=== PATIENT | female | born 1990 | race Two or more races ===

== ENCOUNTER 2016-11-19 23:07 | Inpatient (IN) | payer OTHER ==
[2016-11-19] MEDS ORDERED: EPSOM SALT 454 GM TP PRN (23:57)
[2016-11-19] MEDS ORDERED: TERBUTALINE SULFATE 1 MG/ML VIAL IV PRN (23:57)
[2016-11-19] MEDS ORDERED: LR 1,000 ML IV PRN (23:57)
[2016-11-19] MEDS ORDERED: OXYTOCIN/RINGERS LACTATE 1,000 ML IV PRN (23:57)
[2016-11-19] MEDS ORDERED: OLIVE OIL 118 ML BTL MISC PRN (23:57)
[2016-11-20] MEDS ORDERED: AMMONIA AROMATIC 1 EACH AMP IH ONE (00:21)
[2016-11-20] MEDS ORDERED: OXYTOCIN 10 UNIT/ML VIAL ONE (00:22)
[2016-11-20 00:24] LABS: % IMMATURE GRANULYOCYTES 1.8 % (0.0-1.1); ABSOLUTE IMMATURE GRANULOCYTES 0.16 10^3/uL (0.00-0.10); ADD DIFF? NO; ADD MORPH? NO; ADD SCAN? NO; ATYPICAL LYMPHOCYTE FLAG 10 (0-99); FRAGMENT RBC FLAG 0 (0-99); HEMATOCRIT 38.6 % (38.0-47.0); HEMOGLOBIN 13.2 g/dL (12.6-16.3); LEFT SHIFT FLG 20 (0-99); LIPEMIA HEMOLYSIS FLAG 90 (0-99); MEAN CELL HEMOGLOBIN 30.1 pg (27.9-34.1); MEAN CELL HEMOGLOBIN CONCENTR. 34.2 g/dL (32.4-36.7); MEAN CELL VOLUME 87.9 fL (81.5-99.8); MEAN PLATELET VOLUME 10.1 fL (8.7-11.7); PLATELET CLUMPS FLAG 20 (0-99); PLATELET COUNT 223 10^3/uL (150-400); RED BLOOD CELL COUNT 4.39 10^6/uL (4.18-5.33)
[2016-11-20] MEDS ORDERED: TERBUTALINE SULFATE 1 MG/ML VIAL ONE (00:25)
[2016-11-20] MEDS ORDERED: OLIVE OIL 118 ML BTL ONE (00:25)
[2016-11-20] MEDS ORDERED: MISOPROSTOL 200 MCG TAB ONE (00:25)
[2016-11-20] MEDS ORDERED: LIDOCAINE 1% 300 MG/30 ML SDV ONE (00:25)
[2016-11-20] MEDS ORDERED: HYDROCORTISONE 0.5% CREAM TP PRN (01:26)
[2016-11-20] MEDS ORDERED: ACETAMINOPHEN 325 MG TAB PO PRN (01:26)
[2016-11-20] MEDS ORDERED: DOCUSATE SODIUM 100 MG CAP PO PRN (01:26)
[2016-11-20] MEDS ORDERED: HYDROCODONE/APAP 5/325 TAB PO PRN (01:26)
--- NOTE | 2016-11-20 01:26 | OBPROC ---
- Labor and Delivery Onset of Contractions Date: 11/20/16 Onset of Contractions Time: 08:30 Onset of Contractions Type: Spontaneous Rupture of Membranes Date: 11/20/16 Rupture of Membranes Time: 01:04 Rupture of Membranes Type: Spontaneous Amniotic Fluid Color: Clear Dilation Complete Time: 01:03 Delivery Type: Spontaneous Placenta Delivery Date: 11/20/16 Placenta Delivery Time: 01:08 Episiotomy/Laceration: 1st Degree EBL: 200 - Medications Labor Augmentation/Induction Meds Used: None - Info A Delivery Date: 11/20/16 Delivery Time: 01:04 Sex of Infant: Male Score (1 Min): 8 Score (5 Min): 9
--- NOTE | 2016-11-20 01:50 | GHP ---
[f rep st] PREOP HISTORY AND PHYSICAL DATE OF ADMISSION: 11/19/2016 ADMISSION DIAGNOSES: 1. Intrauterine at 38-6/7 weeks gestation. 2. Labor. 3. History of rapid labors. 4. Grand multipara. INDICATIONS: Patient is a 26-year-old, 7, para 5-0-1-5, who is 38-6/7 weeks gestation. She began having contractions overnight, and she was having contractions every 10-17 minutes; however, she does have a history of rapid labors. She was 1 cm dilated in the office. On arrival to Labor and Delivery, she was 4 cm dilated. The patient is hoping to have an unmedicated . Her is currently on a trip in [place] and is not here for delivery. MEDICAL HISTORY: Anemia while . SURGICAL HISTORY: Dilation and curettage. MEDICATIONS: vitamins and iron. ALLERGIES: No known drug allergies. SOCIAL HISTORY: The patient is a [id number]-qx-[id number] mom. She lives with her and their 5 other children. She denies tobacco, alcohol, or drug use. FAMILY MEDICAL HISTORY: Noncontributory. DATABASE DESIGNER HISTORY: Menarche age 10. Periods every 28 days, lasting 4-5 days. She is a 7, para 5-0-1-5. In 08/2010, she had a spontaneous vaginal delivery of a 6-pound 1-ounce female at 39 weeks gestation. She had an epidural for that. In 08/2011, she had a spontaneous vaginal delivery of an 8- pound 6-ounce male infant at 40 weeks gestation. She had a 2-hour labor. She was induced for that. In 10/2012, she had a spontaneous vaginal delivery of a 7 -pound 7-ounce female infant at 39 weeks gestation, and had a rapid labor. In 02/2014, she had a spontaneous vaginal delivery of a 6-pound 12-ounce female at 39 weeks. She had a 10-hour labor. No complications. In 03/2015, she had a spontaneous vaginal delivery of an 8-pound 3-ounce female at 41 weeks gestation. She had a 1-hour labor and was augmented with artificial rupture of membranes. In 12/2015, she had a missed and had failed medical therapy with Cytotec therapy and had a D and C for a missed . Current has been uncomplicated. Patient denies any history of any abnormal Pap smears or sexually transmitted diseases. REVIEW OF SYSTEMS: Ten-point review of systems is negative. Above-mentioned pertinent positives are noted. She states there is good movement. Denies any loss of fluid. She is having mild spotting. She denies any headaches, changes in vision, nausea or vomiting, fevers or chills. PHYSICAL EXAM: Patient's vital signs are stable. Her general appearance is alert and oriented x3. PSYCH: She has appropriate affect. Her neck is mobile and supple, and there is no thyromegaly noted. Her lungs are clear to auscultation bilaterally. Her heart rate is regular . ABDOMEN: Gravid, nondistended, nontender. EXTREMITIES: No calf tenderness or edema. PELVIC: Cervix is 4 cm dilated, 80% effaced, and -2 station. Infant is in the vertex presentation. heart tracing is category 1. She is having contractions every 4-7 minutes. LABS: Blood type B negative. Antibody screen negative. Rubella immune. GBS negative. HBsAg negative. HIV negative. Her 50 g glucose was 94. She denied any genetic testing. ASSESSMENT AND PLAN: A 26-year-old, 7, para 5-0-1-5, who is 38-6/7 weeks gestation, and presents in early labor. She declines any pain medications and will be managed expectantly. /[id number]/MODL MTDD
[2016-11-20] MEDS: IBUPROFEN 600 MG TAB PO PRN ×2 (09:12→15:12)
[2016-11-20 12:19] VITALS: RESP 16; O2SAT 97
--- NOTE | 2016-11-20 13:23 | OBPROG ---
OBG Progress Note Assessment/Plan: Assessment: 26 y/o PPD #1 s/p doing well Plan: Routine PPC. D/c tomorrow or Friday. 11/20/16 13:22 Subjective: Pt is doing well this am no complaints. She is ambulating, voiding and has min lochia. Baby is breast feeding well and doing well. Objective: 11/20/16 00:04 Patient ABO/Rh A NEGATIVE 11/20/16 03:50 Temp Pulse Resp BP Pulse Ox 36.8 C 69 16 113/65 97 11/20/16 08:00 11/20/16 08:00 11/20/16 08:00 11/20/16 08:00 11/20/16 08:00 Uterine Position/Fundal Height: Umbilicus -2 Uterine Tone: Firm - Physical Exam General Appearance: WD/WN, alert, no apparent distress Neck: non-tender, full range of motion, supple Respiratory: chest non-tender, lungs clear, normal breath sounds Cardiac/Chest: regular rate, rhythm Abdomen: normal bowel sounds Extremities: swelling (no), Chanel's sign (neg) ICD10 Worksheet Patient Problems: Problems Problem Status Onset Spontaneous vaginal delivery Acute
[2016-11-20 19:56] VITALS: PULSE 82
[2016-11-21] MEDS: IBUPROFEN 600 MG TAB PO PRN ×2 (04:29→13:40)
--- NOTE | 2016-11-21 08:38 | SOAPPROG ---
SOAP Progress Note Assessment/Plan: Assessment: well pain well managed vs wnl voiding without difficulty passing gas scant rubra lochia Plan:discharge to home with instructions fu 4 weeks and 6 weeks, pain management , depression, pericare, bleeding pattern, exercise, continuing PNV water intake , pelvic rest, verbalized understanding of all of the above 11/21/16 08:35 Subjective: Doing well denies difficulties. well. Pain well managed. Objective: Vital Signs Temp Pulse Resp BP Pulse Ox 36.1 C 82 16 112/66 97 11/20/16 19:55 11/20/16 19:55 11/20/16 19:55 11/20/16 19:55 11/20/16 19:55 Laboratory Results 11/20/16 00:04 11/20/16 11/21/16 11/22/16 05:59 05:59 05:59 Output Total 200 Balance -200 - Time Spent With Patient Time Spent With Patient: 15 minutes - Pending Discharge Pending Discharge Date: 11/21/16 Pending Discharge Time: 11:00 Physical Exam - Physical Exam General Appearance: WD/WN, alert, no apparent distress Abdomen: other (ff@u) Pelvic Exam: vaginal bleeding (scant rubra lochia) Skin: normal color, warm/dry Extremities: normal range of motion, Chanel's sign (negative bilaterally/ dtrs wnl) Neuro/Psych: no motor/sensory deficits, alert, normal mood/affect ICD10 Worksheet Patient Problems: Problems Problem Status Onset Spontaneous vaginal delivery Acute
[2016-11-21 10:19] VITALS: BP 112/63; TEMP 97.1
== END 2016-11-21 13:45 | disposition home or self-care (01) | DRG 775 ==
LOC: FLD 23:07 → OBSVTOIN 23:57 → FOB 11-20 02:59
PROVIDERS: ADMIT Obstetrics & Gynecology; ATTEND Obstetrics & Gynecology
PROC: 10E0XZZ Delivery of Products of Conception, External Approach (ICD-10-PCS; principal; 2016-11-20)
PROC: 0HQ9XZZ Repair Perineum Skin, External Approach (ICD-10-PCS; principal; 2016-11-20)
DX: O60.14X0 Preterm labor third trimester with preterm delivery third trimester, not applicable or unspecified (principal); Z37.0 Single live birth; Z3A.38 38 weeks gestation of pregnancy; O70.0 First degree perineal laceration during delivery
CPT/HCPCS: J2590; J3105

== ENCOUNTER 2018-05-01 00:05 | Inpatient (IN) | payer OTHER ==
[2018-05-01] MEDS ORDERED: LIDOCAINE 1% 300 MG/30 ML SDV ONE (00:18)
[2018-05-01] MEDS ORDERED: AMMONIA AROMATIC 1 EACH AMP IH ONE (00:18)
[2018-05-01] MEDS ORDERED: OLIVE OIL 118 ML BTL ONE (00:18)
[2018-05-01] MEDS ORDERED: OXYTOCIN 10 UNIT/ML VIAL ONE (00:18)
[2018-05-01] MEDS ORDERED: TERBUTALINE SULFATE 1 MG/ML VIAL ONE (00:18)
[2018-05-01] MEDS ORDERED: MISOPROSTOL 200 MCG TAB ONE (00:19)
[2018-05-01] MEDS ORDERED: MISOPROSTOL 200 MCG TAB PR PRN (00:42)
[2018-05-01] MEDS ORDERED: LR 1,000 ML IV PRN (00:42)
[2018-05-01] MEDS ORDERED: EPSOM SALT 454 GM TP PRN (00:42)
[2018-05-01] MEDS ORDERED: OXYTOCIN/RINGERS LACTATE 1,000 ML IV PRN (00:42)
[2018-05-01] MEDS ORDERED: LIDOCAINE 1% 300 MG/30 ML SDV SC PRN (00:42)
[2018-05-01] MEDS ORDERED: OLIVE OIL 118 ML BTL MISC PRN (00:42)
[2018-05-01] MEDS ORDERED: TERBUTALINE SULFATE 1 MG/ML VIAL IV PRN (00:42)
[2018-05-01] MEDS ORDERED: IBUPROFEN 600 MG TAB PO PRN (00:42)
[2018-05-01 09:05] LABS: PLATELET COUNT 272 10^3/uL (150-400)
--- NOTE | 2018-05-01 09:27 | GHP ---
DATE OF ADMISSION: 05/01/2018 ADMITTING DIAGNOSIS: Intrauterine at 40 weeks gestation for elective augmentation of labor . HISTORY OF PRESENT ILLNESS: The patient is a 27-year-old 8, para 6-0-1-6, with a last menstr ual period of 07/25/2017, and an EDC of 05/01/2018, which was confirmed by a 9 week ultrasound. She has had good care at [facility] since registration at 9 weeks gestation. Her pren atal risk factors include a grand multiparous. This will be her 7th baby. She has a history of prec ipitous deliveries with most of her pregnancies, but otherwise uncomplicated deliveries and pregnanci es. She is Rh negative. She received RhoGAM. Her brother had cleft palate. This baby has had norm al ultrasounds and a short interval. On the evening of the , Beth began having con tractions every 2 minutes, which were mild but concerning because of her history of precipitous deliv elaine. She came in for observation. Her cervix was 2-3 cm. She was kept for observation on the monit or. Baby was reactive category 1. Contractions remained 2-3 minutes, but somewhat irregular and she rested overnight because they were not that intense. In the morning she was recheck. Her cervix co uld be as many as 4 cm during a contraction, but again her contractions are very mild in nature. We discussed a plan for treatment. We weighed the risks and benefits of elective augmentation of labor with artificial rupture of membranes because she is now settled in the hospital, can have IV access a nd have it in a controlled setting to prevent delivery out of hospital or a hemorrhage whe re we can't control and she agrees that is the most prudent and so she is going to stay for augmentat ion of labor. She currently is having very mild contractions. No leakage of fluid. No vaginal blee ding and baby has been moving well. PAST OBSTETRICAL HISTORY: In August of 2010, she had a viable female, weight 6 pounds 1 ounce at 39 w eeks, spontaneous labor. August of 2011, she had a viable male, 8 pounds 6 ounces, 40 weeks, precipit ous delivery, 2 hours of labor. October of 2012, viable female, 7 pounds 7 ounces, 39 weeks, a very fast labor. February 2014, viable female, 6 pounds 12 ounces, 39 weeks, had a longer 10 hour labor. Oc 2014, viable female, 8 pounds 3 ounces, 41 weeks, 1 hour labor. February of 2016, she had a m issed with a D and C. in October of 2016, a viable male, 7 pounds 14 ounces, 38 weeks, again, a very precipitous delivery and this is her current . PAST GYNECOLOGICAL HISTORY: Menarche at age 10, interval every 28 days. Length 4-5 days. This is a sure and regular. Last menstrual period of 07/25/2017. No history of abnormal Paps. No history of MATHEMATICS LECTURER problems or STDs. PAST MEDICAL HISTORY: No significant past medical history. PAST SURGICAL HISTORY: D and C secondary to missed AB and wisdom teeth extraction at age 16. ALLERGIES: No known drug allergies. MEDICATIONS: Her only medications include vitamins and DHA. LABORATORY DATA: She is A negative. Antibody negative. RPR nonreactive. Rubella immune. Hepatiti s negative. HIV negative. Declined genetic screening. Pap normal. Gonorrhea and chlamydia normal. 1-hour GTT 100 and GBS is negative. SOCIAL HISTORY: She is . She lives with her and her children. She is a uajl-nq-cbii mom. She denies tobacco, alcohol, and drug use. FAMILY HISTORY: Her father has hypercholesterolemia and hypertension. Her mother has type 2 diabete s and her sister has gestational diabetes. Her other sister has thyroid dysfunction. Her sister has migraines. Paternal grandmother has breast cancer OBJECTIVE: VITAL SIGNS: Today, she is afebrile, vital signs are stable. heart tones are 130s , reactive, moderate variability, category 1. She is not jomar. Cervix is 4 cm, 80%, -2. ASSESSMENT AND PLAN: A 27-year-old 8, para 6-0-1-6 at 40 weeks' gestation for elective induc tion of labor. The patient is having breakfast and getting showered. I will perform artificial rupt ure of membranes and allow for expectant management. Will augment with Pitocin if needed. /[id number]/MODL
--- NOTE | 2018-05-01 10:50 | OBPROG ---
Labor Progress Note Assessment/Plan: Assessment: 27 y/o @ 40 weeks for IOL. Plan: AROM now, will expectantly manage her labor, if she goes quickly, she will not want an epidural, if she needs pitocin augmentation, she will. 05/01/18 10:42 Subjective/Intrapartum Course: 05/01/18 10:41 Pt is comfortable now, she had breakfast and took a shower and she is ready for augmentation of labor. Objective: 05/01/18 08:45 Patient ABO/Rh A NEGATIVE 05/01/18 08:45 - SVE Dilation (cm): 4 Effacement (%): 50 Station: -2 Membranes: AROM Amniotic Fluid Color: Clear - Contraction Pattern Assessment Current Contraction Pattern: Irregular - FHR Assessment Askew FHR (bpm): 140 FHR Pattern Variability: Moderate FHR Category: 1 - Procedures Non-surgical Procedures: Amniotomy - AP Antepartum Course: 05/01/18 10:42 Grandmultip H/o precipitous deliveries Rh negative Oxytocin Orders Assessment - Pre-Induction/Augmentation Assessment Gestational Age: 40 week(s) and 0 day(s) ICD10 Worksheet Patient Problems: Problems Problem Status Onset Encounter for elective induction of labor Acute - ICD10 Problem Qualifiers (1) Encounter for elective induction of labor
--- NOTE | 2018-05-01 13:27 | OBPROG ---
Labor Progress Note Assessment/Plan: Assessment: 27 y/o @ 40 weeks for IOL. Plan: I encouraged her to ambulate to get active with these contractions. We will give it a little more time and start pitocin augmentation prn. 05/01/18 10:42 05/01/18 13:26 Subjective/Intrapartum Course: 05/01/18 10:41 Pt is comfortable now, she had breakfast and took a shower and she is ready for augmentation of labor. 05/01/18 13:24 Pt is still comfortable not feeling strong contractions. Still having LOF clear. Objective: 05/01/18 08:45 Patient ABO/Rh A NEGATIVE 05/01/18 08:45 - SVE Dilation (cm): 5 Effacement (%): 75 Station: -2 Membranes: AROM Amniotic Fluid Color: Clear - Contraction Pattern Assessment Current Contraction Pattern: Irregular - FHR Assessment Askew FHR (bpm): 130 FHR Pattern Variability: Moderate FHR Category: 1 - Procedures Non-surgical Procedures: Amniotomy - AP Antepartum Course: 05/01/18 10:42 Grandmultip H/o precipitous deliveries Rh negative Oxytocin Orders Assessment - Pre-Induction/Augmentation Assessment Gestational Age: 40 week(s) and 0 day(s) ICD10 Worksheet Patient Problems: Problems Problem Status Onset Encounter for elective induction of labor Acute - ICD10 Problem Qualifiers (1) Encounter for elective induction of labor
[2018-05-01] MEDS ORDERED: PHENYLEPHRINE HCL 100 MCG/ML SYR IVP PRN (13:53)
[2018-05-01] MEDS ORDERED: NALOXONE HCL 0.4 MG/ML INJ IVP PRN (13:53)
[2018-05-01] MEDS ORDERED: ONDANSETRON 4 MG/2 ML VIAL IVP PRN (13:53)
--- NOTE | 2018-05-01 13:58 | PREANESOB ---
Obstetric Pre-Anesthesia Info - General Info Proposed Procedure: vaginal delivery : 8 Para: 0 MALIK: 05/01/18 Gestational Age: 40 week(s) and 0 day(s) - Info Status: Full Term Monitors: External FHR Pattern: Reassuring - Labor Status Cervical Dilation per last OB SVE: 5 Station per last OB SVE: -2 Amniotic Fluid Color: Clear Pitocin: Planned PIH: No Magnesium Sulfate in Use: No Labor Epidural: Proposed Anesthesia Allergies/Adverse Reactions: Allergy/AdvReac Type Severity Reaction Status Date / Time No Known Allergies Allergy Verified 05/01/18 00:30 Home Medications: Medication Instructions Recorded Docusate Sodium [Colace 100 MG (*)] 100 mg PO BID PRN #0 cap 11/21/16 Ibuprofen [Motrin (*)] 600 mg PO Q6HRS PRN #0 tab 11/21/16 Visit Medications: Generic Name Dose Route Start Last Admin Trade Name Freq PRN Reason Stop Dose Admin Lactated Ringer's 1,000 mls @ 0 mls/hr 05/01/18 00:42 Lr IV 05/02/18 00:41 PRN PRN SEE PROTOCOL CONDITIONS Protocol Per Protocol Oxytocin/Lactated Ringer's 1,000 mls @ 125 mls/hr 05/01/18 00:42 Pitocin 20 Units/Lr (Premix) IV PRN PRN Post bleeding Ibuprofen 600 mg 05/01/18 00:42 Motrin PO ONCE PRN post , pain Lidocaine HCl 300 mg 05/01/18 00:42 Lidocaine Hcl 1% SC 10/28/18 00:41 ONCE PRN episiotomy Magnesium Sulfate 454 gm 05/01/18 00:42 Epsom Salt TP 10/28/18 00:41 Q1H PRN perineal discomfort Misoprostol 800 - 1,000 mcg 05/01/18 00:42 Cytotec [place] ONCE PRN Vaginal Atony/Bleeding [place] Oil 118 ml 05/01/18 00:42 Sweet Oil MISC 10/28/18 00:41 ONCE PRN perineal massage Terbutaline Sulfate 0.25 mg 05/01/18 00:42 Brethine IV 10/28/18 00:41 ONCE PRN Tachysystole Discontinued Medications Generic Name Dose Route Start Last Admin Trade Name Freq PRN Reason Stop Dose Admin Ammonia (Aromatic Spirit) Confirm 05/01/18 00:18 Ammonia Aromatic Administered 05/01/18 00:19 Dose 1 each IH .STK-MED ONE Lidocaine HCl Confirm 05/01/18 00:18 Lidocaine Hcl 1% Administered 05/01/18 00:19 Dose 300 mg .ROUTE .STK-MED ONE Misoprostol Confirm 05/01/18 00:19 Cytotec Administered 05/01/18 00:20 Dose 1,000 mcg .ROUTE .STK-MED ONE [place] Oil Confirm 05/01/18 00:18 Sweet Oil Administered 05/01/18 00:19 Dose 118 ml .ROUTE .STK-MED ONE Oxytocin Confirm 05/01/18 00:18 Pitocin Administered 05/01/18 00:19 Dose 40 unit .ROUTE .STK-MED ONE Terbutaline Sulfate Confirm 05/01/18 00:18 Brethine Administered 05/01/18 00:19 Dose 1 mg .ROUTE .STK-MED ONE - Anesthesia History Response to Local Anesthetics: Normal Anesthesia & Operative History: No Prior Problems Family Anesthesia History: Negative - Vital Signs Latest Vital Signs (Nursing): See OB TraceVue. Height/Weight (Nursing): Height 157.48 cm Weight 78.471 kg Weight: 78 kg Height: 157 cm - Focused Exam Neck exam: FROM Mallampati Score: Class 2 Mouth exam: normal dental/mouth exam Pulmonary: clear to auscultation Cardiovascular: regular rate and rhythym Labs: 05/01/18 08:45 Patient ABO/Rh A NEGATIVE 05/01/18 08:45 - Plan Consent Signed and on Chart: Yes
[2018-05-01] MEDS ORDERED: fentaNYL 2MCG/ML/BUP 0.1% RTU 100 ML EP SCH (14:00)
[2018-05-01] MEDS ORDERED: LR 500 ML IV SCH (14:00)
[2018-05-01] MEDS ORDERED: fentaNYL 2MCG/ML/BUP 0.1% RTU 100 ML BAG EP ONE (14:08)
[2018-05-01] MEDS ORDERED: LR 500 ML IV PRN (14:52)
[2018-05-01] MEDS ORDERED: OXYTOCIN/RINGERS LACTATE 500 ML IV SCH (15:00)
[2018-05-01] MEDS ORDERED: SIMETHICONE 80 MG TAB CHEW PO PRN (16:52)
[2018-05-01] MEDS ORDERED: HYDROCORTISONE 0.5% CREAM TP PRN (16:52)
[2018-05-01] MEDS ORDERED: DOCUSATE SODIUM 100 MG CAP PO PRN (16:52)
--- NOTE | 2018-05-01 16:58 | OBDEL ---
Info Type: Vaginal Presentation at Delivery: Vertex L&D Analgesia/Anesthesia Type: Epidural GBS+: No Intrapartum Medications: Generic Name Dose Route Start Last Admin Trade Name Megan PRN Reason Stop Dose Admin Oxytocin/Lactated Ringer's 500 mls @ 0 mls/hr 05/01/18 15:00 05/01/18 15:23 Pitocin 30 Units/Lr (Premix) IV 10/28/18 14:59 500 mls CONT [place] Administration Protocol Per Protocol - Hospital Course Intrapartum: 05/01/18 10:41 Pt is comfortable now, she had breakfast and took a shower and she is ready for augmentation of labor. 05/01/18 13:24 Pt is still comfortable not feeling strong contractions. Still having LOF clear. Indications for Delivery: Elective (augmentation of labor, history of preciptous delivery) Vaginal Delivery - Delivery Provider Delivery Physician/CNM: Ursula Camacho - Labor and Delivery Onset of Contractions Date: 05/01/18 Onset of Contractions Time: 15:30 Onset of Contractions Type: Induced Rupture of Membranes Date: 05/01/18 Rupture of Membranes Time: 10:38 Rupture of Membranes Type: Artificial Amniotic Fluid Color: Clear Dilation Complete Date: 05/01/18 Dilation Complete Time: 16:38 Placenta Delivery Date: 05/01/18 Placenta Delivery Time: 16:44 Total Hours of Labor: 1 Non-surgical Procedures: Amniotomy Laceration: 1st Degree Repair: 3-0, Vicryl Vaginal Sponge Count Correct: Yes Vaginal Needle Count Correct: Yes Vaginal Sweep Performed: Yes EBL: 150 Delivery Events: None - Medications Labor Augmentation/Induction Methods Used: Pitocin Labor Augmentation/Induction Indication: Inadequate Contraction Frequency, Inadequate Contraction Strength, Elective, Other (Specify) (h/o preciptous delivery) Data MALIK: 05/01/18 Gestational Age: 40 week(s) and 0 day(s) Askew Delivery Date: 05/01/18 Delivery Time: 16:40 Sex of Infant: Male Score (1 Min): 8 Score (5 Min): 9 ICD10 Worksheet Patient Problems: Problems Problem Status Onset Encounter for elective induction of labor Acute (spontaneous vaginal delivery) Acute - ICD10 Problem Qualifiers (1) Encounter for elective induction of labor (2) (spontaneous vaginal delivery)
[2018-05-01] MEDS: IBUPROFEN 600 MG TAB PO SCH (20:25)
[2018-05-01] MEDS: ACETAMINOPHEN 325 MG TAB PO SCH (21:12)
[2018-05-02] MEDS: ACETAMINOPHEN 325 MG TAB PO SCH ×3 (03:55→12:21)
[2018-05-02] MEDS: IBUPROFEN 600 MG TAB PO SCH ×3 (08:24→14:24)
[2018-05-02 10:34] VITALS: BP 109/64
--- NOTE | 2018-05-02 10:52 | OBPP ---
Progress Note Assessment/Plan: Assessment: 1) Grand multip, s/p PPD# 1 - pt is stable 2) Anemia - pt is asymptomatic 3) Rh negative - Rhogam eval Plan: Plan for discharge home today Instructions reviewed with pt No Rx given Cont PNV, iron and colace prn Pelvic rest RTC in 4 weeks and 6 weeks for pp visit 05/02/18 10:52 Subjective/ Course: 05/02/18 10:48 Pt seen and examined. Doing well, with no complaints. Mild cramping, bartolome with breast feeding. Mod lochia. Pt is OOB, kimber regular, voiding without difficulty, and BM x 1. BF is going well. She wants to go home today. Objective: 05/01/18 08:45 Patient ABO/Rh A NEGATIVE 05/01/18 08:45 Temp Pulse Resp BP Pulse Ox 36.9 C 94 16 109/64 96 05/02/18 08:00 05/02/18 08:00 05/02/18 08:00 05/02/18 08:00 05/02/18 08:00 Uterine Position/Fundal Height: Umbilicus -2 Uterine Tone: Firm Physical Exam - Physical Exam General Appearance: WD/WN, alert, no apparent distress Respiratory: lungs clear, normal breath sounds Cardiac/Chest: regular rate, rhythm Abdomen: normal bowel sounds, non-tender, soft, flatus (+) Extremities: non-tender, normal inspection Skin: normal color, warm/dry Neuro/Psych: alert, normal mood/affect, oriented x 3
--- NOTE | 2018-05-02 10:53 | OBGCSDC ---
General Delivery Information - General Info : 8 Para: 1 Abortions: 1 Type: Vaginal L&D Analgesia/Anesthesia Type: Epidural Admission Date: 05/01/18 Labs: Patient ABO/Rh A NEGATIVE 05/01/18 08:45 Hct 35.6 % (38.0-47.0) L 05/01/18 08:45 - Hospital Course Antepartum: 05/01/18 10:42 Grandmultip H/o precipitous deliveries Rh negative Intrapartum: 05/01/18 10:41 Pt is comfortable now, she had breakfast and took a shower and she is ready for augmentation of labor. 05/01/18 13:24 Pt is still comfortable not feeling strong contractions. Still having LOF clear. : 05/02/18 10:48 Pt seen and examined. Doing well, with no complaints. Mild cramping, bartolome with breast feeding. Mod lochia. Pt is OOB, kimber regular, voiding without difficulty, and BM x 1. BF is going well. She wants to go home today. Vaginal - Delivery Provider Delivery Physician/CNM: Ursula Camacho - Diagnosis Labor: Induced Rupture of Membranes Type: Artificial Amniotic Fluid Color: Clear Laceration: 1st Degree Repair: 3-0, Vicryl Delivery Events: None - Procedures Non-surgical Procedures: Amniotomy - Delivery Non-surgical Procedures: Amniotomy EBL: 150 [place] Data MALIK: 05/01/18 Gestational Age: 40 week(s) and 1 day(s) Askew Delivery Date: 05/01/18 Delivery Time: 16:40 Sex of Infant: Male Weight (gm): 3658 g Score (1 Min): 8 Score (5 Min): 9 Discharge Information - Discharge Information Condition: Good Instruction/Follow Up: Four Weeks (mood check), Six Weeks (pp check)
--- NOTE | 2018-05-02 11:31 | POSTANESTH ---
Post Anesthetic Evaluation Cardiovascular Status: Normal, Stable, Tx Over/Under Hydration Respiratory Status: Normal, Stable Level of Consciousness/Mental Status: Can Participate in Eval Pain Control: Adequate, Prn Tx Ordered Nausea/Vomiting Control: Adequate, Prn Tx Ordered Complications Possibly Related to Anesthesia: None Noted (site clean and dry, no complications, no c/o back pain)
[2018-05-03] MEDS ORDERED: FERROUS SULFATE 140 MG TAB.ER PO SCH (09:00)
== END 2018-05-02 19:30 | disposition home or self-care (01) | DRG 807 ==
LOC: FLD 00:05 → OBSVTOIN 00:44 → FOB 19:25
PROVIDERS: ADMIT Obstetrics & Gynecology; ATTEND Obstetrics & Gynecology
DX: O70.0 First degree perineal laceration during delivery (principal); Z37.0 Single live birth; Z3A.40 40 weeks gestation of pregnancy; O99.03 Anemia complicating the puerperium; D64.9 Anemia, unspecified
CPT/HCPCS: J2370; J2590; J3105